=== PATIENT | female | born 2000 | race Caucasian/White ===

== ENCOUNTER 2022-07-24 01:10 | Outpatient (CLI) | payer OTHER, SELFPAY | END 2022-07-24 01:11 | disposition home or self-care (01) | LOC: AMB 08-22 11:13 | PROVIDERS: Visit Provider Family Medicine | DX: F10.129 Alcohol abuse with intoxication, unspecified (principal) ==

== ENCOUNTER 2022-07-24 01:32 | Emergency (ER) | payer OTHER, SELFPAY ==
[2022-07-24] VITALS (7 sets, daily range): BP systolic 88–108; BP diastolic 50–61; PULSE 75–85; RESP 16; TEMP 36.6; O2SAT 95–100; BMI 28.3
--- NOTE | 2022-07-24 01:37 | ED_ITS ---
HPI - Alcohol General Time Seen by Provider: 01:37 Date Seen: 07/24/22 Chief Complaint: Alcohol/Intoxication Stated Complaint: alcohol poisoning Time Seen by Provider: 07/24/22 01:33 Source: patient, EMS and RN notes reviewed Mode of arrival: EMS Limitations: no limitations History of Present Illness HPI narrative: Patient is a 21-year-old [employer] student brought to the emergency room by EMS after she experienced vomiting from using alcohol. Patient was noted to been drinking beer and vodka this evening. She started vomiting and thus EMS was called and patient was brought here to the emergency room. When I ask can a how much alcohol she had tonight she answers ?too much?. When I ask her if she is normally healthy she responds by saying ?I am on the [employer] team?. Patient denies that this is a frequent occurrence. She denies any other drug use. She also denies any trauma or harm. Patient has been obeying commands, protecting her airway, and is conversive. Denies possibility of . While I am in the room patient asked to sit up further in bed. She then has some retching. complaint: alcohol intoxication Last drink: just [employer] Chronic alcohol use: No Previous visits for alcohol intoxication: No Recent trauma: No Associated symptoms: nausea and vomiting Severity: moderate Treatments prior to arrival: anti-emetics (Zofran 4 mg) Related Data Home Medications Medication Instructions Recorded Confirmed drospirenone 3 mg-ethinyl 1 tab PO DAILY 07/24/22 07/24/22 estradiol 0.02 mg tablet spironolactone 50 mg tablet 50 mg PO BID 07/24/22 07/24/22 Allergies Allergy/AdvReac Type Severity Reaction Status Date / Time No Known Drug Allergies Allergy Verified 07/24/22 01:39 Review of Systems Status of ROS Reports: 6 or more systems reviewed and unremarkable except as noted in History and below Cardio Denies: shortness of breath with exertion Resp Denies: shortness of breath GI Reports: nausea and vomiting; Denies: abdominal pain or diarrhea [facility] Medical History (Updated 07/24/22 @ 01:55 by Marco Fabian RN) Acne vulgaris Androgenic alopecia Eczema Irregular menstrual cycle No significant past medical history Strabismus Social History Smoking Status: Never smoker Do you use any of these nicotine containing products: None Second hand tobacco smoke exposure: No How often do you have a drink containing alcohol: never How often do you have six or more drinks on one occasion: Never AUDIT-C Alcohol total score: 0 Non-prescribed substance use: denies use Exam Const: Vital Signs, click to edit/add: Vital Signs - 24 hr 07/24/22 01:36 07/24/22 01:49 07/24/22 02:02 Temperature 97.9 F Pulse Rate 76 Pulse Rate [Left P ulse Oximeter] 75 Respiratory Rate 16 Blood Pressure 88/50 L Blood Pressure [Le ft Upper Arm] 102/61 Pulse Oximetry 100 98 95 Oxygen Delivery Me thod Room Air 07/24/22 02:04 07/24/22 02:58 07/24/22 03:00 Temperature Pulse Rate 81 85 Pulse Rate [Left P ulse Oximeter] Respiratory Rate Blood Pressure 108/58 L Blood Pressure [Le ft Upper Arm] Pulse Oximetry 96 99 Oxygen Delivery Me thod 07/24/22 03:06 Temperature Pulse Rate Pulse Rate [Left P ulse Oximeter] Respiratory Rate 16 Blood Pressure Blood Pressure [Le ft Upper Arm] Pulse Oximetry 97 Oxygen Delivery Me thod Room Air Documenting provider has reviewed patient's vital signs: yes Common normals: oriented x3 and healthy appearing General appearance: cooperative, well kempt and in distress (When vomiting) mild; not ill appearing and not diaphoretic HENMT: Common normals: normocephalic, head/scalp atraumatic, external ears normal and external nose normal Head and scalp: normocephalic and atraumatic Face and sinus: normal facial exam Nose: external nose normal External ear: external ears normal Mouth: oral and palatal mucosa normal Eye: Common normals: EOMs intact bilaterally General eye: normal appearance of both eyes Other: Initially preferring to keep her eyes closed while talking. Neck & C-Spine: Common normals: full ROM, no lymphadenopathy and supple Resp: Common normals: normal respiratory effort and clear to auscultation bilaterally Effort & inspection: able to speak in complete sentences Auscultation: clear to auscultation bilaterally Cardio: Common normals: regular rate and regular rhythm Rate: regular rate Rhythm: regular rhythm GI: Common normals: soft to palpation and non-tender Palpation: soft : Bladder/kidney exam: no CVA tenderness Back & Pelvis: Common normals: no thoracic nor lumbar tenderness General back: no CVA tenderness Extremity: Common normals: normal to inspection Neuro: Common normals: oriented x3, moves all extremities and no focal motor deficits Sensorium/orientation: other (Intoxicated. Prefers to sleep.) Speech: abnormal speech (Appropriate content. Quick sentences.) Details: not slurred, not stuttering or not complete aphasia Psych: Common normals: cooperative and speech normal Appearance: well kempt Activity/motor behavior: avoids eye contact (Prefers to keep eyes closed) Speech: normal speech and rapid Skin: Common normals: no rashes or lesions noted General skin exam: no rashes or lesions noted Course Course Hospital Course: Patient is noted to have experienced vomiting after intake of beer and vodka this evening at [facility]. She has remained awake, is able to protect her airway but still has some mild retching upon her arrival here. Patient will be given normal saline 1 L as well as an additional dose of Zofran 4 mg IV. Her mother is on her way from [place]. At this time Gabbie is condition is such that I would not feel the need to order laboratory values. She is receiving fluids at this time. Plan on discharge into mom's care when she arrives. Vital Signs Vital signs: Initial Vital Signs Temperature 97.9 F 07/24/22 01:36 Temperature Source Temporal Artery Scan 07/24/22 01:36 Pulse Rate 75 07/24/22 01:36 Pulse Rhythm 07/24/22 01:36 Respiratory Rate 16 07/24/22 01:36 Blood Pressure 102/61 07/24/22 01:36 Blood Pressure Mean 74 07/24/22 01:36 Blood Pressure Position Supine 07/24/22 01:36 Pulse Oximetry 100 07/24/22 01:36 Oxygen Delivery Method 07/24/22 01:36 Vital Signs Temperature 97.9 F 07/24/22 01:36 Pulse Rate 75 07/24/22 01:36 Respiratory Rate 16 07/24/22 01:36 Blood Pressure 102/61 07/24/22 01:36 Pulse Oximetry 100 07/24/22 01:36 Oxygen Delivery Method 07/24/22 01:36 Temperature 97.9 F 07/24/22 01:36 Pulse Rate 85 07/24/22 03:00 Respiratory Rate 16 07/24/22 03:06 Blood Pressure 108/58 L 07/24/22 02:58 Pulse Oximetry 97 07/24/22 03:06 Oxygen Delivery Method 07/24/22 03:06 MDM - Alcohol MDM Narrative Medical decision making narrative: 1. Alcohol intoxication-patient has been awake and has become quite alert since the arrival of her mom. While upon her arrival she told the nurses that she drank too much alcohol tonight and was not able to tell me how much she had, she tells her mom that she has had more in the past without this sort of reaction. She and her mom are concerned about possible other substances that Gbabie may have ingested. They would like to do a urinary toxicology which I did order and is negative. I also offered other tests but stated that I do not know what an alcohol level would tell us as Gabbie is talking has been protecting her airway and I feel is safe to be discharged at this time. We talked briefly about a blood toxicology but this is a send out would not be available for a number days even weeks. 2. Vomiting -patient receives Zofran 4 mg by EMS and additional 4 mg by the ED. She also received 1 L of normal saline. She has not been vomiting. She initially had some chills and tremors but was able to sleep and this has dissipated. Recommend pushing fluids today. Recommend avoiding alcohol. 3. Disposition-patient is discharged home in the care of her mother. It did talk briefly about her going back to school. I would let this be their decision. However, I feel that she is safe to be discharged from the hospital. Differential Diagnosis Differential diagnosis: Likely alcohol intoxication Lab Data Attestation: I reviewed the patient's lab results. Labs: Lab Results 07/24/22 Range/Units 02:52 Urine Opiates Screen Negative (Negative) Ur Oxycodone Screen Negative (Negative) Urine Methadone Screen Negative (Negative) Ur Propoxyphene Screen Negative (Negative) Ur Barbiturates Screen Negative (Negative) U Tricyclic Antidepress Negative (Negative) Ur Phencyclidine Scrn Negative (Negative) Ur Amphetamines Screen Negative (Negative) U Methamphetamines Scrn Negative (Negative) U Benzodiazepines Scrn Negative (Negative) Urine Cocaine Screen Negative (Negative) U Marijuana (THC) Screen Negative (Negative) Ur Drug Screen Comment See Note Discharge Plan Discharge Clinical Impression: Alcoholic intoxication, Vomiting Patient Disposition: Home w/ Parent or Adult Condition: Improved Additional Instructions: Push fluids. Recommend rest. Avoid alcohol. Seek medical attention for worsening symptoms. Prescriptions: No Action spironolactone 50 mg tablet 50 mg PO BID Label Comments: TAKE 1 TABLET BY MOUTH TWICE DAILY drospirenone-ethinyl estradiol 3-0.02 mg tablet 1 tab PO DAILY Stand Alone Forms: [employer]Med[employer] Info Instructions
[2022-07-24] MEDS: 0.9 % SODIUM CHLORIDE 1000 ml 1,000 ML IV (01:42)
[2022-07-24] MEDS: ONDANSETRON 2 MG/ML inj 4 MG IVP (01:43)
--- NOTE | 2022-07-24 02:44 | ED.NURSE ---
mother at bedside, MD Olmos in to speak with mother. pt sleeping with friend at bedside prior. dry heaves, oxygenation 94% to 99%
--- NOTE | 2022-07-24 03:04 | ED.NURSE ---
patient up to bathroom with sba, slight unsteady gait, pt alert and oriented.
[2022-07-24 03:07] LABS: Amphetamine Screen Urine Negative (Negative); Barbiturate Screen Urine Negative (Negative); Benzodiazepines Screen Urine Negative (Negative); Cannabinoid Screen Urine Negative (Negative); Cocaine Screen Urine Negative (Negative); Methadone Screen Urine Negative (Negative); Methamphetamines Screen Urine Negative (Negative); Opiate Screen Urine Negative (Negative); Oxycodone Screen Urine Negative (Negative); Phencyclidine Screen Urine Negative (Negative); Tricyclic Antidepressant Urine Negative (Negative)
== END 2022-07-24 03:27 | disposition home or self-care (01) ==
PROVIDERS: Emergency Provider Family Medicine
DX: F10.129 Alcohol abuse with intoxication, unspecified (principal); R11.0 Nausea
CPT/HCPCS: 80306; 94761; 96374; 99283; 99284; J2405; J7030